=== PATIENT | female | born 1940 | race Caucasian/White ===

== ENCOUNTER → 2018-02-19 14:57 | Outpatient (CLI) | payer MEDICARE, OTHER ==
[2012-04-14 06:33] VITALS: BMI 20.7
== END | disposition home or self-care (01) ==
LOC: D.MRI 14:57
DX: M54.5 Low back pain (principal)

== ENCOUNTER → 2018-02-26 10:20 | Outpatient (CLI) | payer MEDICARE, OTHER ==
[2012-04-14 06:33] VITALS: BMI 20.7
--- NOTE | ~2018-02-26 | HEMODYNAMI ---
PATIENT:NICHOLAS VAZQUEZ MEDICAL RECORD: [id number] : 36 LOCATION:[facility] ADMISSION DATE: 02/26/18 Generatedon:02/26/201812:16 Patient name: NICHOLAS VAZQUEZ Patient #: [id number] SSN: : 1940 Date of study: 02/26/2018 Page: Of Hemodynamic Procedure Report Patient Data Patient Demographics Procedure consent was obtained First Name: NICHOLAS Gender: Female Last Name: GEORGE : 1940 Patient #: [id number] Age: 77 year(s) Race: Unknown Additional ID: [id number] Contact details [address]: [address] [place] [address] State: [place] City: [place] Zip code: [address] Past Medical History Allergies Allergen Reaction Date Comments Reported Morphine 02/26/2018 Penicillins 02/26/2018 Admission Admission Data Admission Date: 02/26/2018 Admission Time: 10:20 Procedure Procedure Types Cath Procedure Peripheral Cath Diagnostic Procedure Miscellaneous Procedure Description Procedure Date Procedure Date: 02/26/2018 Procedure Start Time: 11:59 Procedure Staff Name Function Juan Howard MD Performing Physician Aurora Madera RN Nurse Adrian Antonio RT Monitor Laurita Dorsey RT Client Advisor Procedure Data Cath Procedure Fluoroscopy Diagnostic fluoroscopy Total fluoroscopy Time: 0.2 time: 0.2 min min Diagnostic fluoroscopy Total fluoroscopy dose: 1 dose: 1 mGy mGy Hemodynamics Rest Pre Cath Intra NCS Post Cath Procedure Log Time Note 11:52:10 Adrian Antonio RT (R) (CV) sent for patient. Start room use. 11:52:23 Correct patient and procedure confirmed by team. 11:52:24 Signed procedure consent form obtained from patient. 11:52:27 Pre-op teaching completed and patient verbalized understanding. 11:52:29 Pre-procedure instructions explained to patient. 11:52:31 Family in waiting room. 11:52:52 PT STATES NOT TAKING ANY BLOOD THINNERS 11:53:02 Patient allergic to Morphine 11:53:18 Patient allergic to Penicillins 11:53:28 Lumbar area was prepped with betadine and draped in sterile fashion 11:58:54 Physician arrived 11:58:54 --------ALL STOP TIME OUT------ 11:58:56 Final Timeout: patient, procedure, and site verified with staff and physician. All members of the team are in agreement. 11:59:00 Lumbar site verified by team. 11:59:09 Sedation plan: Local Anesthetic Medication:Lidocaine 11:59:18 Procedure started. 11:59:18 Full Disclosure recording started 11:59:30 Local anesthetic to Lumbar area with Lidocaine 1% by Juan Howard MD.INITIAL ACCESS ONLY 12:13:57 Procedure ended.(Physican Out) 12:14:39 POST INSTRUCTIONS VERBALIZED TO PATIENT 12:15:20 PT WILL REMAIN IN WAITING ROOM FOR 30 MINUTES IF PT OK AT THAT TIME WILL SEND HOME PER 12:15:40 BANDAIDE APPLIED 12:15:44 Report given to Other. 12:15:47 Patient transfered to Other with Ambulatory. 12:16:07 Fluoroscopy time 00.20 minutes. 12:16:13 Fluoroscopy dose: 1 mGy 12:16:13 Flurop Dose total: 1 Signature Audit [place] Stage Time Signature Unsigned Intra-Procedure 02/26/2018 Adrian 12:16:37 PM Paco RT (R) (CV) Signatures Monitor : Adrian Signature : Paco RT Date : Time : [facility] [address] [place] [address]
== END | disposition home or self-care (01) ==
LOC: D.RAD 09:00
DX: M54.5 Low back pain (principal)

== ENCOUNTER → 2018-03-17 20:33 | Outpatient (CLI) | payer MEDICARE, OTHER ==
[2012-04-14 06:33] VITALS: BMI 20.7
== END | disposition home or self-care (01) ==
LOC: D.MAMMO 11:15
DX: Z12.31 Encounter for screening mammogram for malignant neoplasm of breast (principal)

== ENCOUNTER → 2018-03-26 08:54 | Outpatient (CLI) | payer MEDICARE, OTHER ==
[2012-04-14 06:33] VITALS: BMI 20.7
--- NOTE | ~2018-03-26 | HEMODYNAMI ---
PATIENT:NICHOLAS VAZQUEZ MEDICAL RECORD: [id number] : 36 LOCATION:[facility] ADMISSION DATE: 03/26/18 Generatedon:03/26/201810:09 Patient name: NICHOLAS VAZQUEZ Patient #: [id number] SSN: : 1940 Date of study: 03/26/2018 Page: Of Hemodynamic Procedure Report Patient Data Patient Demographics Procedure consent was obtained First Name: NICHOLAS Gender: Female Last Name: GEORGE : 1940 Patient #: [id number] Age: 77 year(s) Race: Unknown Additional ID: [id number] Contact details [address]: [address] [place] [address] State: [place] City: [place] Zip code: [address] Past Medical History Allergies Allergen Reaction Date Comments Reported Morphine 02/26/2018 Penicillins 02/26/2018 Penicillins 03/26/2018 Morphine 03/26/2018 Admission Admission Data Admission Date: 03/26/2018 Admission Time: 8:54 Procedure Procedure Types Cath Procedure Peripheral Cath Diagnostic Procedure Miscellaneous Epidural Steroid Injection Procedure Description Procedure Date Procedure Date: 03/26/2018 Procedure Start Time: 10:02 Procedure Staff Name Function Laurita Dorsey RT 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 Start room use. 9:54:51 Patient arrived from Other to IR. Patient remains on bed/stretcher for procedure. 9:54:58 Patient received from Other to IR Alert and oriented. Tansferred to table in Prone position. 9:55:06 Correct patient and procedure confirmed by team. 9:55:08 Signed procedure consent form obtained from patient. 9:55:11 - 9:55:12 Pre-procedure instructions explained to patient. 9:55:12 Pre-op teaching completed and patient verbalized understanding. 9:55:14 Family in waiting room. 9:55:29 Patient allergic to Penicillins 9:55:35 Patient allergic to Morphine 9:55:43 Is patient on blood thinner?No 9:56:09 Lumbar area was prepped with betadine and draped in sterile fashion 10:00:21 Physician arrived 10:00:22 --------ALL STOP TIME OUT------ 10:00:27 Final Timeout: patient, procedure, and site verified with staff and physician. All members of the team are in agreement. 10:00:34 Lumbar site verified by team. 10:00:40 Sedation plan: Local Anesthetic Medication:Lidocaine 10:01:43 Procedure started. 10:01:43 Full Disclosure recording started 10:02:05 Local anesthetic to right femoral artery with Lidocaine 1% by Juan Howard MD.INITIAL ACCESS ONLY 10:07:37 Procedure ended.(Physican Out) 10:07:59 Fluoroscopy time 03.00 minutes. 10:08:04 Fluoroscopy dose: 1 mGy 10:08:04 Flurop Dose total: 1 10:08:06 Insertion/operative site no bleeding no hematoma. 10:08:59 BANDAIDE PLACED POST INSTRUCTIONS GIVEN TO PT VERBALLY AND PT UNDERSTANDS PT WILL BE PLACED IN WAITING ROOM FOR 30 MIN THAN SENT HOME Signature Audit [facility] Stage Time Signature Unsigned Intra-Procedure 03/26/2018 Adrian 10:09:26 AM Paco RT (R) (CV) Signatures Monitor : Adrian Signature : Paco RT Date : Time : [place] [id number] [place] [id number]
== END | disposition home or self-care (01) ==
LOC: D.RAD 08:54
DX: M54.5 Low back pain (principal)

== ENCOUNTER → 2018-04-15 14:50 | Outpatient (CLI) | payer MEDICARE, OTHER ==
[2012-04-14 06:33] VITALS: BMI 20.7
== END | disposition home or self-care (01) ==
LOC: D.MAMMO 04-14 11:30
DX: R92.8 Other abnormal and inconclusive findings on diagnostic imaging of breast (principal)